=== PATIENT | male | born 1960 | race Caucasian/White ===

== ENCOUNTER 2020-03-04 10:01 | Emergency (ER) | payer MEDICAID ==
[2020-03-04] MEDS ORDERED: Sodium Chloride 0.9% 10 ML Syringe FLUSH PRN (10:52)
[2020-03-04 11:48] VITALS: BP 142/88; PULSE 64
--- NOTE | 2020-03-04 11:51 | CT ---
DATE OF SERVICE: 03/04/2020 CLINICAL DATA: Dizziness Unenhanced brain CT: Multi slice acquisition without IV contrast was performed. No priors. No masses or mass effect. No intracranial hemorrhage. No evidence of acute or subacute infarct. There is mucosal thickening in the ethmoid and left sphenoid sinuses consistent with chronic sinusitis. No osseous abnormalities. Impression: No acute intracranial abnormalities. MTDD
--- NOTE | 2020-03-08 11:39 | EDM.PDOC ---
ED HPI GENERAL MEDICAL PROBLEM - General Chief Complaint: Eye Problems Stated Complaint: SOB, SHAKING, BLURRED VISION Time Seen by Provider: 03/04/20 12:00 Source of Information: Reports: Patient, EMS, EMS Notes Reviewed History Limitations: Reports: No Limitations - History of Present Illness INITIAL COMMENTS - FREE TEXT/NARRATIVE: This patient presents to the ED via EMS for evaluation of change in vision and dizziness. The patient states the incident started about 45" prior to arrival and he was in his kitchen making breakfast. He had his vision go dark and "pixilate" but did not go completely black. He also felt dizzy and noted a headache so called 911. On arrival he states he vision was "almost normal" and he was no longer dizzy but did still have a headache. He states he had a similar event "a while ago" that resolved completely and he did not seek medical attention for that. He denies recent illnesses including fever, cough, shortness of breath or sore throat. Onset: Today, Sudden Duration: Improving Location: Reports: Head Severity: Moderate Improves with: Reports: None Worsens with: Reports: None Associated Symptoms: Reports: Headaches. Denies: Confusion, Chest Pain, Cough, Fever/Chills, Nausea/Vomiting, Seizure, Shortness of Breath, Syncope, Weakness - Related Data Allergies Allergy/AdvReac Type Severity Reaction Status Date / Time No Known Allergies Allergy Verified 03/04/20 10:58 Home Meds: Home Meds Losartan Potassium 1 tab PO DAILY 09/26/15 [History] Metoprolol Succinate 50 mg PO DAILY 03/04/20 [History] Pravastatin Sodium 20 mg PO DAILY 03/04/20 [History] Past Medical History HEENT History: Reports: Other (See Below) Other HEENT History: bilateral cerumen impactions Cardiovascular History: Reports: Hypertension Respiratory History: Reports: Other (See Below) Other Respiratory History: Current Smoker Genitourinary History: Reports: Other (See Below) Other Genitourinary History: Urinary Hesitancy possibly r/t BPH Psychiatric History: Reports: ADD - Past Surgical History HEENT Surgical History: Reports: None Respiratory Surgical History: Reports: None Male Surgical History: Reports: None Social & Family History - Family History Family Medical History: Noncontributory Cardiac: Reports: Heart Failure, High Cholesterol, Hypertension, [place] - Tobacco Use Smoking Status *Q: Current Every Day Smoker Years of Tobacco use: 15 Packs/Tins Daily: 0.5 Used Tobacco, but Quit: No Second Hand Smoke Exposure: No - Caffeine Use Caffeine Use: Reports: Coffee - Alcohol Use Days Per Week of Alcohol Use: 3 Number of Drinks Per Day: 3 Total Drinks Per Week: 9 - Recreational Drug Use Recreational Drug Use: No ED ROS GENERAL - Review of Systems Review Of Systems: Comprehensive ROS is negative, except as noted in HPI. ED EXAM GENERAL W FULL EYE - Physical Exam Exam: See Below Exam Limited By: No Limitations General Appearance: Alert, No Apparent Distress Eye Exam: Bilateral Eye: PERRL Ears: Normal External Exam, Normal Canal, Hearing Grossly Normal, Normal TMs Nose: Normal Inspection, Normal Mucosa Throat/Mouth: Normal Inspection, Normal Oropharynx, No Airway Compromise Head: Atraumatic, Normocephalic Neck: Normal Inspection Respiratory/Chest: No Respiratory Distress, Lungs Clear, Normal Breath Sounds, No Accessory Muscle Use Cardiovascular: Normal Peripheral Pulses, Regular Rate, Rhythm GI/Abdominal: Normal Bowel Sounds, Soft, Non-Tender, No Distention Back Exam: Normal Inspection Extremities: Normal Inspection, Normal Capillary Refill Neurological: Alert, Oriented, Normal Cognition, Normal Gait, Normal Reflexes, No Motor/Sensory Deficits Psychiatric: Normal Affect, Normal Mood Skin Exam: Warm, Dry Course - Vital Signs Last Recorded V/S: Last Vital Signs Temp 36.3 C 03/04/20 10:52 Pulse 64 03/04/20 11:46 Resp 18 03/04/20 11:46 BP 142/88 H 03/04/20 11:46 Pulse Ox 95 03/04/20 11:46 - Orders/Labs/Meds Labs: Laboratory Tests 03/04/20 03/04/20 Range/Units 10:52 10:52 WBC 4.6 (4.0-11.0) K/uL RBC 4.49 L (4.50-6.50) M/uL Hgb 14.4 (13.0-18.0) g/dL Hct 40.7 (40.0-54.0) % MCV 91 (76-96) fL MCH 32.1 H (27.0-32.0) pg MCHC 35.4 H (31.0-35.0) g/dL RDW 13.0 (11.0-16.0) % Plt Count 184 (150-400) K/uL MPV 10.4 H (6.0-10.0) fL Neut % (Auto) 48.8 (45.0-70.0) % Lymph % (Auto) 30.9 (20.0-40.0) % [place] % (Auto) 15.0 H (3.0-10.0) % Eos % (Auto) 4.6 (1.0-5.0) % Baso % (Auto) 0.7 H (0.0-0.5) % Neut # (Auto) 2.25 (2.00-7.50) K/uL Lymph # (Auto) 1.42 L (1.50-4.00) K/uL [place] # (Auto) 0.69 (0.20-0.80) K/uL Eos # (Auto) 0.21 (0.04-0.40) K/uL Baso # (Auto) 0.03 (0.02-0.10) K/uL Sodium 141 (136-145) mmol/L Potassium 4.1 (3.5-5.1) mmol/L Chloride 105 (98-107) mmol/L Carbon Dioxide 26.9 (21.0-32.0) mmol/L Anion Gap 13.2 (5.0-15.0) mmol/L BUN 18 D (8-26) mg/dL Creatinine 0.90 (0.70-1.30) mg/dL Est Cr Clr Drug Dosing 104.02 mL/min Estimated GFR (MDRD) > 60 (>60) MLS/MIN BUN/Creatinine Ratio 20.0 (6-25) Glucose 72 L (74-100) mg/dL Calcium 8.4 L (8.5-10.1) mg/dL Troponin I < 0.017 (0.000-0.060) ng/mL Meds: Medications Discontinued Medications Generic Name Dose Route Start Last Admin Trade Name Freq PRN Reason Stop Dose Admin Sodium Chloride 10 ml 03/04/20 10:52 Saline Flush FLUSH ASDIRECTED PRN Keep Vein Open - Re-Assessments/Exams Free Text/Narrative Re-Assessment/Exam: 03/08/20 11:42 This patient presents to the ED for evaluation of neurological issues. History and clinical findings seem most consistent with a TIA. I did contact Dr. Reyna in Neurology at [facility] and they will see the patient there on outpatient status. An brain MRI was ordered to done here on March 08. The patient was instructed to return to the ED if he has any additional symptoms or concerns. Departure - Departure Time of Disposition: 12:30 Disposition: Home, Self-Care 01 Condition: Good Clinical Impression: TIA (transient ischemic attack) - Discharge Information *PRESCRIPTION DRUG MONITORING PROGRAM REVIEWED*: No Instructions: Transient Ischemic Attack, [id number] Referrals: PCP,None [Primary Care Provider] - Forms: ED Department Discharge Care Plan Goals: May take ASA 81mg daily, try to cut back on the smoking. Continue to monitor your BP. Follow up with an MRI Marva will make your appointment and call you with a time. Return to hospital or clinic with any questions or concerns or if the symptoms return. Sepsis Event Note - Evaluation Sepsis Screening Result: No Definite Risk
== END 2020-03-04 12:29 | disposition home or self-care (01) ==
LOC: LB.ED 10:01
DX: G45.9 Transient cerebral ischemic attack, unspecified (principal); I10 Essential (primary) hypertension; F17.210 Nicotine dependence, cigarettes, uncomplicated; Z79.899 Other long term (current) drug therapy
CPT/HCPCS: 36415; 70450; 80048; 84484; 85025; 93005; 99284; 99285-25

== ENCOUNTER 2023-07-25 10:00 | Day surgery (SDC) | payer MEDICAID ==
[~2023-07-25 10:00] MED LIST: Metoclopramide 10 MG/2 ML SDV IV PRN
[2023-07-25] MEDS: Sodium Chloride 0.9% 1,000 ML IV SCH (10:26)
[2023-07-25] MEDS ORDERED: Propofol 1,000 MG/100 ML SDV ONE (11:30)
[2023-07-25 11:40] VITALS: PULSE 48
[2023-07-25 11:45] VITALS: BP 120/78
== END 2023-07-25 12:13 | disposition home or self-care (01) ==
LOC: LB.SDS 10:00
PROVIDERS: ATTEND Surgery
DX: Z12.11 Encounter for screening for malignant neoplasm of colon (principal); K57.30 Diverticulosis of large intestine without perforation or abscess without bleeding; K64.8 Other hemorrhoids; I10 Essential (primary) hypertension; Z86.010 Personal history of colon polyps
CPT/HCPCS: J2704; J7030

== ENCOUNTER 2024-07-09 16:30 | Emergency (ER) | payer MEDICAID ==
[2024-07-09] MEDS: Albuterol/Ipratropium 3.0-0.5 MG/3 ML Neb Soln NEB ONE (16:37)
[2024-07-09] MEDS ORDERED: Sodium Chloride 0.9% 10 ML Syringe FLUSH PRN (16:44)
[2024-07-09 16:56] LABS: BASOPHILS ABSOLUTE AUTO 0.03 K/uL (0.02-0.10); BASOPHILS PERCENT AUTO 0.6 % (0.0-0.5); EOSINOPHILS ABSOLUTE AUTO 0.05 K/uL (0.04-0.40); HEMATOCRIT 42.3 % (40.0-54.0); HEMOGLOBIN 15.2 g/dL (13.0-18.0); LYMPHOCYTES PERCENT AUTO 29.1 % (20.0-40.0); MEAN CORPUSCULAR HEMOGLOBIN 32.9 pg (27.0-32.0); MEAN CORPUSCULAR HGB CONC 35.9 g/dL (31.0-35.0); MEAN CORPUSCULAR VOLUME 92 fL (76-96); MEAN PLATELET VOLUME 10.5 fL (6.0-10.0); MONOCYTES ABSOLUTE AUTO 0.42 K/uL (0.20-0.80); MONOCYTES PERCENT AUTO 8.7 % (3.0-10.0); NEUTROPHILS ABSOLUTE AUTO 2.91 K/uL (2.00-7.50); NEUTROPHILS PERCENT AUTO 60.6 % (45.0-70.0); PLATELET COUNT,PLT 188 K/uL (150-400); RED BLOOD CELL COUNT 4.62 M/uL (4.50-6.50); WHITE BLOOD CELL COUNT,WBC 4.8 K/uL (4.0-11.0)
[2024-07-09] MEDS: Morphine 2 MG/ML SYRINGE IVPUSH PRN (16:56)
[2024-07-09] MEDS: Aspirin 81 MG Tab.Chew PO ONE (16:58)
[2024-07-09] MEDS: Morphine 4 MG/ML VIAL ONE (17:00)
[2024-07-09] MEDS: Nitroglycerin 0.4 MG Tab.SL SL PRN (17:00)
[2024-07-09 17:35] LABS: A/G RATIO 1.1 (0.8-2.0); ALANINE AMINOTRANSFERASE,ALT 30 U/L (12-78); ALBUMIN 3.7 g/dL (3.4-5.0); ALKALINE PHOSPHATASE 49 U/L (46-116); ASPARTATE AMNIOTRANSFERASE,AST 20 U/L (15-37); BILIRUBIN TOTAL 0.8 mg/dL (0.0-1.0); BLOOD UREA NITROGEN,BUN 20 mg/dL (8-26); BUN/CREATININE RATIO 16.3 (6-25); CALCIUM 9.1 mg/dL (8.5-10.1); CARBON DIOXIDE,CO2 28.3 mmol/L (21.0-32.0); CHLORIDE,CL 103 mmol/L (98-107); CREATININE 1.23 mg/dL (0.70-1.30); ESTIMATED GFR 66 mL/min (>60); GLUCOSE RANDOM 132 mg/dL (74-100); POTASSIUM,K 3.3 mmol/L (3.5-5.1); PRO B-TYPE NATRIUR PEPT,BNPPRO 103 pg/mL (0-125); SODIUM,NA 141 mmol/L (136-145)
[2024-07-09 17:44] LABS: TROPONIN I HIGH SENSITIVITY < 4.0 pg/ml (<=60.4)
[2024-07-09] MEDS: Iopamidol 755 Mg/ML 100 ML Bottle IV PRN (18:04)
[2024-07-09] MEDS: Sodium Chloride 0.9% 50 ML SDV FLUSH SCH (18:04)
[2024-07-09 18:40] VITALS: BP 123/80; PULSE 60
[2024-07-09] MEDS: Potassium Chloride Riders 10 MEQ in Premix Bag 1 BAG IV ONE (19:15)
== END 2024-07-09 21:30 | disposition home or self-care (01) ==
LOC: LB.ED 16:30
DX: E87.6 Hypokalemia (principal); I10 Essential (primary) hypertension; E78.00 Pure hypercholesterolemia, unspecified; Z79.899 Other long term (current) drug therapy
CPT/HCPCS: 36415; 71045; 71275; 80053; 83880; 84484; 85025; 85379; 93005; 93010; 96365; 96375; 99284; 99285-25; A9270-GY; J2270; J3480; J3490; J7620; Q9967

== ENCOUNTER 2024-09-29 12:57 | Emergency (ER) | payer MEDICAID ==
[2024-09-29 13:34] LABS: HEMOGLOBIN 15.3 g/dL (13.0-18.0); MEAN CORPUSCULAR HEMOGLOBIN 32.1 pg (27.0-32.0); MEAN CORPUSCULAR HGB CONC 34.8 g/dL (31.0-35.0); MEAN PLATELET VOLUME 10.6 fL (6.0-10.0); RED BLOOD CELL COUNT 4.76 M/uL (4.50-6.50); RED CELL DISTRIBUTION WIDTH 12.9 % (11.0-16.0); WHITE BLOOD CELL COUNT,WBC 7.6 K/uL (4.0-11.0)
[2024-09-29 13:54] LABS: BUN/CREATININE RATIO 21.9 (6-25); C-REACTIVE PROTEIN 9.5 mg/L (<5.0); CALCIUM 8.9 mg/dL (8.5-10.1); CARBON DIOXIDE,CO2 30.9 mmol/L (21.0-32.0); CREATININE 0.96 mg/dL (0.70-1.30); EST CRCL DRUG DOSING (CG) 91.57 mL/min; POTASSIUM,K 3.9 mmol/L (3.5-5.1)
[2024-09-29] MEDS: Apixaban 5 MG Tab PO ONE (14:36)
[2024-09-29 14:53] VITALS: BP 137/77; PULSE 74
== END 2024-09-29 14:45 | disposition home or self-care (01) ==
LOC: LB.ED 12:57
DX: I82.432 Acute embolism and thrombosis of left popliteal vein (principal); I10 Essential (primary) hypertension; E78.00 Pure hypercholesterolemia, unspecified; Z79.01 Long term (current) use of anticoagulants; Z79.899 Other long term (current) drug therapy
CPT/HCPCS: 36415; 80048; 85027; 85379; 86140; 99283; 99284; A9270